=== PATIENT | male | born 1945 | race Caucasian/White ===

== ENCOUNTER → 2017-12-29 | Outpatient (CLI) | payer OTHER, BC ==
[~2017-12-29] VITALS: Ht 185.4 cm; Wt 115.2 kg
[~2017-12-29] MED LIST: ADVAIR 500-501 EACH; ADVAIR 500/501 DISK IH; ALENDRONATE SOD70 MG PO; ALLERGY RELIEF10 M1 PO; ASTELIN137 MCG/0. BOTH NARES; ATIVAN0.5 MG PO; ATROVENT 00.5 MG/2.5 IH; Ascorbic Acid,Ester- PO; Astelin, Astepro 0.1 BOTH NARES; BENZONATATE200 MG PO; BETHANECHOL CHL10 MG PO; BINOSTO70 MG PO; COMBIVENT INH14.7 GM IH; COMBIVENT RESPIM4 GM IH; COMBIVENT200 INHALA; COMBIVENT200 INHALA IH; CYANOCOBALAM1000 MCG PO; Claritin,Alavart PO; Combivent IH; DALIRESP500 MCG PO; DEXILANT60 MG; DEXILANT60 MG PO; DUONEB 2.5-0.5 M3 ML IH; FLUZONE 2045 MCG/010; FOSAMAX70 MG PO; FUROSEMIDE20 MG PO; FUROSEMIDE40 MG PO; Fosamax PO; IPRATR-ALBUTEROL3 ML; KAPIDEX60 MG PO; KLOR-CON 1010 ME1 PO; KLOR-CON M1010 MEQ PO; LASIX20 MG PO; LASIX80 MG PO; LEVOFLOXACIN500 MG; LOPRESSOR25 MG PO; Lasix PO; Lopressor PO; METHYLPREDNISOL32 MG; METOPROLOL TART25 MG PO; MIRALAX17 GM PO; Micro-K,K-Tab,K-Dur, PO; NUVIGIL150 MG PO; NYSTATIN100000 UN1 PO; OXYGEN; PRAVASTATIN SOD40 MG; PREDNISONE10 M1; PREDNISONE10 MG PO; PREDNISONE20 MG PO; PROBIOTIC1 EAC1 PO; PROVENTIL2.5 MG/3 M IH; SEROQUEL100 MG PO; SEROquel PO; SINGULAIR10 MG PO; Singulair PO; THEO-24300 MG PO; THEO-DUR,THEOC200 MG PO; THEO-DUR,THEOC300 MG PO; THEOPHYLLINE A300 M1 PO; TRAMADOL HCL50 MG PO; TRIAMTERENE-HC1 EACH PO; Tessalon Perle PO; Theo-Dur,Theocron PO; ULTRAM50 MG PO; URECHOLINE10 MG PO; Urecholine PO; VITAMIN B-121000 MCG PO; VITAMIN B12-FO1 EACH PO; VITAMIN D-32000 UNIT PO; VITAMIN D2000 UNIT PO; Vitamin D PO; XANAX0.5 MG PO; Xanax PO; ZITHROMAX250 MG PO; ZOLPIDEM TARTRA10 MG PO; [UNRECOGNIZED DRUG - OTHER] PO; celeXA PO; predniSONE PO
[2017-12-29 08:24] LABS: HEMATOCRIT 39.6 % (38.0-50.0); HEMOGLOBIN 12.8 G/DL (12.5-16.6); MCV 76.4 FL (86-99)
[2017-12-29 08:37] LABS: CHLORIDE 105 mEq/L (99-109); POTASSIUM 3.8 mEq/L (3.7-5.4); SODIUM 141 mEq/L (136-147)
[2017-12-29 08:43] LABS: CREATININE 1.4 mg/dL (0.6-1.3); GFR ESTIMATE (CALCULATED) 53 mL/min/ (58.99-99999)
[2017-12-29 08:44] LABS: UREA NITROGEN (BUN) 11 mg/dL (9-23)
[2017-12-29 09:02] LABS: GLUCOSE 166 mg/dL (70-99)
== END | disposition home or self-care (01) ==
LOC: AMB 07:20
PROVIDERS: Anesthesiology
DX: D12.3 Benign neoplasm of transverse colon (principal); D12.2 Benign neoplasm of ascending colon; D12.5 Benign neoplasm of sigmoid colon; D12.4 Benign neoplasm of descending colon; K57.30 Diverticulosis of large intestine without perforation or abscess without bleeding; K64.8 Other hemorrhoids; K64.4 Residual hemorrhoidal skin tags; J44.9 Chronic obstructive pulmonary disease, unspecified; K22.70 Barrett's esophagus without dysplasia; I10 Essential (primary) hypertension; Z79.52 Long term (current) use of systemic steroids; Z82.49 Family history of ischemic heart disease and other diseases of the circulatory system; Z87.891 Personal history of nicotine dependence; Z88.0 Allergy status to penicillin; Z88.1 Allergy status to other antibiotic agents; Z88.8 Allergy status to other drugs, medicaments and biological substances
CPT/HCPCS: 80048; 85014; 85018; 88305; 93005; J2250; J2405